=== PATIENT | female | born 1985 | race Caucasian/White ===

== ENCOUNTER 2021-12-11 22:21 | Inpatient (IN) | payer OTHER ==
[~2021-12-11] VITALS: Ht 167.6 cm; Wt 77.1 kg
[~2021-12-11 22:21] MED LIST: Bactrim Ds Tab1 EACH PO
[2021-12-11 23:39] LABS: BASOPHILS ABSOLUTE AUTO 0.03 K/mm3 (0.00-0.23); BASOPHILS PERCENT AUTO 1 % (0-2); EOSINOPHILS ABSOLUTE AUTO 0.36 K/mm3 (0.00-0.68); EOSINOPHILS PERCENT AUTO 6 % (0-6); Hematocrit 38.2 % (33.0-51.0); Hemoglobin 13.1 g/dL (11.5-16.0); IMMATURE GRAN PERCENT AUTO 0 % (0-1); LYMPHOCYTES PERCENT AUTO 40 % (21-46); MONOCYTES ABSOLUTE AUTO 0.45 K/mm3 (0.16-1.47); MONOCYTES PERCENT AUTO 8 % (4-13); Mean Corpuscular HGB 31.7 pg (26.0-34.0); Mean Corpuscular HGB Conc 34.3 g/dL (31.5-36.5); Mean Corpuscular Volume 93 fL (80-100); Mean Platelet Volume 9.3 fL (9.1-12.4); NEUTROPHILS ABSOLUTE AUTO 2.56 K/mm3 (1.96-9.15); NEUTROPHILS PERCENT AUTO 45 % (41-73); Platelet Count 259 K/mm3 (150-400); RDW Coefficient Variation 11.4 % (11.7-14.2); RDW Standard Deviation 38.5 fL (35.1-46.3); Red Blood Cell Count 4.13 M/mm3 (3.80-5.20)
[2021-12-11 23:49] LABS: Bun/Creatinine Ratio 20.4 (12.0-20.0); Calcium, Blood 9.2 mg/dL (8.5-10.1); Creatinine, Blood 0.69 mg/dL (0.40-1.00); Potassium, Blood 3.9 mmol/L (3.5-5.5)
[2021-12-12] MEDS ORDERED: NARCAN4 M1 (06:46)
[2021-12-12 08:36] LABS: Creatine Kinase MB 31.7 ng/mL (0.0-3.6)
[2021-12-12 08:39] LABS: Creatine Kinase MB Index 1.9 (0.0-4.0)
[2021-12-12 10:33] LABS: Base Excess Venous 5.7 mmol/L; Bicarbonate Venous 26.6 mmol/L (24.0-30.0); PCO2 Venous 65.6 mmHg (38-42); PO2 Venous 36.1 mmHg (38-42)
[2021-12-12 10:46] LABS: Source, Urine Clean Catch
[2021-12-12 11:22] LABS: Appearance, Urine Clear (Clear); Bilirubin, Urine Neg (Neg); Blood, Urine 1+ (Neg); Color, Urine Yellow (P-Yellow); Glucose Qualitative, Urine Neg (Neg); Ketones, Urine 3+ (Neg); Leukocyte Esterase, Urine 1+ (Neg); Nitrite, Urine Neg (Neg); Protein, Urine 1+ (Neg); Specific Gravity, Urine 1.025 (1.003-1.022); Urobilinogen, Urine NORM (Normal)
[2021-12-12 11:38] LABS: Bacteria Few /hpf; Red Blood Cells, Urine 0-2 /hpf (0-2); Squamous Epithelial Cells Few /hpf (Few)
[2021-12-12 11:39] LABS: Transitional Epithelial Cells Few /hpf (0-Rare)
[2021-12-12 11:56] LABS: Influenza A, PCR NEGATIVE (NEGATIVE); Influenza B, PCR NEGATIVE (NEGATIVE); Resp Syncytial Virus, PCR NEGATIVE (NEGATIVE); SARS-Cov-2 (COVID-19) PCR, MMC NEGATIVE (NEGATIVE)
[2021-12-12 12:26] LABS: U Amphetamine Screen DETECTED; U Barbituate Screen Not Detected; U Benzodiazapine Screen DETECTED; U Buprenorphine Screen Not Detected; U Cannabinoids Screen Not Detected; U Cocaine Screen Not Detected; U Methadone Screen Not Detected; U Methamphetamine Screen DETECTED; U Opiates Screen Not Detected; U Oxycodone Screen Not Detected; U Phencyclidine Screen Not Detected; U Propoxyphene Screen Not Detected
[2021-12-12 13:00] LABS: Base Excess Venous 3.7 mmol/L; Bicarbonate Venous 25.9 mmol/L (24.0-30.0); PCO2 Venous 55.8 mmHg (38-42); pH Blood Venous 7.33 (7.34-7.37)
--- NOTE | 2021-12-12 20:35 | NUR ---
1940: CALLED GERARD LOGAN FROM ED, REPORT RECEIVED. 2015: PT WAS TRANSFERRED TO ROOM 344 VIA RNEY. PT SLEEPING.REMAINED HER EYES CLOSED, RESPOND TO VERBAL STIMULI. REFUSE TO ANSWER QUESTIONS. UNABLE TO ASSESS HX. VSS. HR 48BPM. LR INFUSING AT 200MLS/HR. CALLED DR. NANCE FOR TELE AND FLUIDS NS AT 75MLS/HR FOR 1.5 LITER. PT REMAIN CALM IN ROOM, SLEEPING. NOTED SOME JERKING WHEN ATTEMPTING TO SPEAK OR MAKE CONVERSATION.NO SIGNS OF SI OR DISTRESS AT THIS TIME. PT WILL BE ON CAMERA FOR SAFETY AND OBSERVATION. NOTIFY CHARGE NURSE FANI OF SAFETY PRECAUTIONS.
--- NOTE | 2021-12-13 03:37 | NUR ---
SHIFT SUMMARY NO ACUTE CHANGES SINCE PT CAME IN. PT PRESENTS INTERMITTENT JERKING MOVEMENTS. PT RESPONDS TO PAINFULA AND VERBAL STIMULI BUT HAD BEEN SLEEPING T/O SHIFT. PT'S SISTER CALLED LAST NIGHT, MEI. I ASKED THE PT FOR VERBAL CONSENT IF I COULD RELEASE INFO TO HER, PT VERBALIZE "YES", SLIGHTLY OPENED HER EYES. PT'S STS STATES THAT JERKING MOVEMENTS IS CHRONIC AND BASELINE DUE TO [place]'S DISEASE. SHE ALSO STATES THAT THE PT HAS BEEN HOMELESS FOR ABOUT 6 YRS, ON/OFF WILL VISIT AND STAY WITH MEI IN [place]. IV FLUIDS INFUSING AT 75MLS/HR. BED ALARM ON AND BED IN LOW POSITION FOR SAFETY. NPO. VSS, HR BETWEEN 42-60'S. TELE IN PLACE:SINUS AGUILAR. ATTENDS IN PLACE. CALL LIGHT WITHIN REACH. WILL CONTINUE TO MONITOR AND WILL PROVIDE REPORT TO ONCOMING NURSE.
[2021-12-13 06:06] LABS: Albumin, Blood 3.1 g/dL (3.4-5.0); Albumin/Globulin Ratio 0.9 (0.8-1.8); Bilirubin, Total 0.7 mg/dL (0.1-1.0); Bun/Creatinine Ratio 26.4 (12.0-20.0); Calcium, Blood 8.3 mg/dL (8.5-10.1); Creatinine, Blood 0.53 mg/dL (0.40-1.00); Globulin, Blood 3.4 g/dL (2.2-4.0); Potassium, Blood 3.6 mmol/L (3.5-5.5); Total Protein, Blood 6.5 g/dL (6.4-8.2)
--- NOTE | 2021-12-13 18:05 | NUR ---
SHIFT SUMMARY: PT LETHARGIC AND WITHDRAEN AT THE BEGGINING OF THE SHIFT. PT ANSWERED TO YES OR NO QUESTIONS WITH MUBLING. PT INCONTIENT OF URINE AND WEARING ATTENDS. PT HAD NO COMPLAINTS OF PAIN. PT AT LUNCH TIME MORE AWAKE AND COMMUNICATING WITH YES OR NO QUESTIONS. PT ASSISTED WITH MEAL AT THE BEGINNING THEN PATIENT WAS ABLE TO FEED HERSELF. PT HAS INVLOUNTARY JERKING AND MOVEMENT, NEEDS ASSISTANCE WITH MEALS OR FINGER FOODS TO EAT. PT WAS ABLE TO AMBULATE TO THE RESTROOM TO URINATE, PT WAS A 1 PERSON ASSIST. PT IS ON KVO NS 75ML/HR. PT HAD NO COMPLAINTS OF PAIN, NO AGITATION THROUGHOUT SHIFT. DR. FRANKLIN CONTACTED SISTER TO CONFIRM HX OF [place] DISEASE. DR. FRANKLIN ORDERED CT SCAN. PT LYING IN BED WITH CALL LIGHT WITHIN REACH.
[2021-12-14 08:32] LABS: Hematocrit 36.8 % (33.0-51.0); Hemoglobin 12.8 g/dL (11.5-16.0); Mean Corpuscular HGB 31.8 pg (26.0-34.0); Mean Corpuscular HGB Conc 34.8 g/dL (31.5-36.5); Mean Corpuscular Volume 91 fL (80-100); Mean Platelet Volume 9.2 fL (9.1-12.4); Platelet Count 239 K/mm3 (150-400); RDW Coefficient Variation 11.6 % (11.7-14.2); RDW Standard Deviation 39.1 fL (35.1-46.3); Red Blood Cell Count 4.03 M/mm3 (3.80-5.20); White Blood Cell Count 5.01 K/mm3 (4.00-11.30)
[2021-12-14 08:52] LABS: Anion Gap 5 mmol/L (6-16); Blood Urea Nitrogen 11 mg/dL (8-24); Bun/Creatinine Ratio 18.7 (12.0-20.0); CO2, Blood 26 mmol/L (21-32); CPK Creatine Kinase 701 U/L (26-193); Calcium, Blood 8.1 mg/dL (8.5-10.1); Chloride, Blood 112 mmol/L (98-108); Creatinine, Blood 0.59 mg/dL (0.40-1.00); Glomerular Filtration Rate 121 (60-); Glucose, Blood 91 mg/dL (70-99); Phosphorus, Blood 2.1 mg/dL (2.5-4.9); Potassium, Blood 3.7 mmol/L (3.5-5.5); Sodium, Blood 143 mmol/L (136-145)
--- NOTE | 2021-12-14 16:58 | NUR ---
SHIFT SUMMARY PATIENT LETHARGIC AND WITHDRAWN AT BEGINNING OF SHIFT. ONLY ANSWERING TO YES OR NO QUESTIONS. WAKING BRIEFLY FOR MEALS AND TO GET UP TO USE THE RESTROOM. SBA TO RESTROOM TO MANAGE IV POLE. RECEIVING NS AT 75ML/HR. BECOMING MORE AWAKE LATER IN SHIFT WHEN FAMILY AT BEDSIDE. TELE MONITORING WITH UNSPECIFIC ARRHYTHMIA NOTED. WILL CONTINUE TO MONITOR.
--- NOTE | 2021-12-14 19:50 | NUR ---
PT DENIED ANY HEADACHE, CHEST PAIN, NAUSEA, SOB, OR NUMBNESS AND TINGLING. PT AMBULATORY TO [facility] WITH SBA. PT REPORTS ONLY COMPLAINT IS SHE IS "FEELING TIRED." IV INFUSING TO LEFT AC IV SITE WITHOUT COMPLICATIONS. TELE IN PLACE. PT BACK TO BED. BED ALARM ON FOR PT SAFETY. FLUIDS AT BEDSIDE. CALL LIGHT WITHIN REACH. NO REQUESTS AT THIS TIME.
--- NOTE | 2021-12-14 20:25 | NUR ---
I RECEIVED AN UPDATE FROM MONI, THAT [facility] STAFF CALLED THAT PT'S FRIEND, MEI HAD PASSED THE PATIENT AN ITEM, AND THEN PT REPORTED SHE NEEDED TO USE THE RESTROOM. I WENT INTO THE ROOM, AND PT WAS AMBULATORY TO [facility] WITH [employer]OT[employer] MACHINIST APPRENTICE'S PRESENT IN THE ROOM. I ASKED MEI, IF SHE HAD PASSED ANYTHING TO THE PT, AND SHE STATED "NO." I REPORTED THAT VISITING HOURS WERE OVER - MEI REPORTED SHE WAS PT'S RIDE FOR DISCHARGE, AND SHE "DIDN'T HAVE ANY GAS TO GET HOME." PT THEN STATED SHE "WANTS TO LEAVE." I ASKED PT TO SIT DOWN, AND THAT WE WOULD REMOVE IV, AND THAT I WOULD GET A AGAINST MEDICAL ADVICE FORM FOR HER TO SIGN. I CONTACTED DR. GERMAN AND RELAYED THE ABOVE SCENARIO TO HER. I ALSO SPOKE TO VENTURA TODD. I REPORTED TO DR. GERMAN THAT PT IS LUCID. DR. GERMAN REVIEWED PT'S CPK, AND REPORTED HER RENAL FUNCTION IS BETTER. I ALSO RELAYED TO DR. GERMAN, THAT PRIOR TO ADMIT PT WAS FOUND AT SE[facility] FEATHERS, AND REPORT WAS SHE HAD USED SOME FENTANYL, AND PT WAS ADMINISTERED NARCAN, AT WHICH TIME SHE BECAME SEVERELY AGITATED, AND PER DAY SHIFT REPORT - ER HAD TO SEDATE HER. PT PULLED HER OWN IV OUT, PER MONI MARYANN - SHE PLACED A DRESSING TO IV SITE WITH COBAN. PT SIGNED THE AMA FORM, AND AMBULATED OUT OF THE HOSPITAL WITH HER FRIEND, MEI, WHO APPARENTLY SHE LIVES WITH (PER REPORT FROM MEI.)
== END 2021-12-14 20:40 | disposition left against medical advice (07) | DRG 917 ==
LOC: ER 22:21 → ERHOLD 22:22 → MEDS 12-12 20:11
PROVIDERS: Emergency Medicine; Nurse Practitioner Acute Care; ADMIT Internal Medicine
DX: T40.411A Poisoning by fentanyl or fentanyl analogs, accidental (unintentional), initial encounter (principal); G92.8 Other toxic encephalopathy; J96.01 Acute respiratory failure with hypoxia; E87.2 Acidosis; G10 Huntington's disease; M62.82 Rhabdomyolysis; F15.10 Other stimulant abuse, uncomplicated; F13.10 Sedative, hypnotic or anxiolytic abuse, uncomplicated; R74.8 Abnormal levels of other serum enzymes; Z20.822 Contact with and (suspected) exposure to COVID-19; Z53.29 Procedure and treatment not carried out because of patient's decision for other reasons; I49.9 Cardiac arrhythmia, unspecified; F17.210 Nicotine dependence, cigarettes, uncomplicated; Z88.0 Allergy status to penicillin; Z78.1 Physical restraint status; Z91.040 Latex allergy status; Z79.899 Other long term (current) drug therapy
CPT/HCPCS: 0241U; 36415; 70450; 80048; 80053; 80069; 81001; 82550; 82553; 82803; 83735; 84550; 85025; 85027; 93005; 93010; 94762; 96361; 96372; 96374; 96375; 99285-25; G0378; J1200; J1630; J1650; J1790; J2060; J2310; J7030; J7120

== ENCOUNTER 2022-05-28 16:51 | Emergency (ER) | payer OTHER ==
[~2022-05-28] VITALS: Ht 170.2 cm; Wt 63.5 kg
[~2022-05-28 16:51] MED LIST changes: +NARCAN4 M1
[2022-05-28 17:33] LABS: BASOPHILS ABSOLUTE AUTO 0.01 K/mm3 (0.00-0.23); BASOPHILS PERCENT AUTO 0 % (0-2); EOSINOPHILS ABSOLUTE AUTO 0.34 K/mm3 (0.00-0.68); EOSINOPHILS PERCENT AUTO 6 % (0-6); Hematocrit 36.5 % (33.0-51.0); Hemoglobin 12.7 g/dL (11.5-16.0); IMMATURE GRAN ABSOLUTE AUTO 0.01 K/mm3 (0.00-0.10); IMMATURE GRAN PERCENT AUTO 0 % (0-1); LYMPHOCYTES ABSOLUTE AUTO 1.32 K/mm3 (0.84-5.20); LYMPHOCYTES PERCENT AUTO 25 % (21-46); MONOCYTES ABSOLUTE AUTO 0.32 K/mm3 (0.16-1.47); MONOCYTES PERCENT AUTO 6 % (4-13); Mean Corpuscular HGB 31.6 pg (26.0-34.0); Mean Corpuscular HGB Conc 34.8 g/dL (31.5-36.5); Mean Corpuscular Volume 91 fL (80-100); NEUTROPHILS ABSOLUTE AUTO 3.39 K/mm3 (1.96-9.15); NEUTROPHILS PERCENT AUTO 63 % (41-73); Platelet Count 210 K/mm3 (150-400); RDW Coefficient Variation 12.2 % (11.7-14.2); RDW Standard Deviation 40.5 fL (35.1-46.3); Red Blood Cell Count 4.02 M/mm3 (3.80-5.20); White Blood Cell Count 5.39 K/mm3 (4.00-11.30)
[2022-05-28 17:52] LABS: Albumin, Blood 3.6 g/dL (3.4-5.0); Albumin/Globulin Ratio 0.9 (0.8-1.8); Bilirubin, Total 0.2 mg/dL (0.1-1.0); Bun/Creatinine Ratio 28.4 (12.0-20.0); Calcium, Blood 9.1 mg/dL (8.5-10.1); Creatinine, Blood 0.6 mg/dL (0.40-1.00); Potassium, Blood 3.8 mmol/L (3.5-5.5); Total Protein, Blood 7.6 g/dL (6.4-8.2)
[2022-05-28 18:24] LABS: Source, Urine Clean Catch
[2022-05-28 18:48] LABS: Appearance, Urine Hazy (Clear); Bilirubin, Urine Neg (Neg); Blood, Urine 3+ (Neg); Color, Urine Yellow (P-Yellow); Glucose Qualitative, Urine Neg (Neg); Ketones, Urine Neg (Neg); Leukocyte Esterase, Urine 3+ (Neg); Nitrite, Urine Neg (Neg); Protein, Urine 1+ (Neg); Specific Gravity, Urine 1.025 (1.003-1.022); Urobilinogen, Urine NORM (Normal)
[2022-05-28 18:54] LABS: Hyaline Casts 0-2 /lpf (0-2); Mucus Light (0-Heavy); White Blood Cells, Urine 25-50 /hpf (0-5)
[2022-05-28 18:55] LABS: Bacteria Many /hpf; Squamous Epithelial Cells Mod /hpf (Few); Transitional Epithelial Cells Rare /hpf (0-Rare)
[2022-05-28] MEDS ORDERED: PRAHYD1AEA PR (19:32)
== END 2022-05-28 19:39 | disposition home or self-care (01) ==
LOC: ER 16:51
PROVIDERS: Physician Assistant
DX: K64.9 Unspecified hemorrhoids (principal); F17.200 Nicotine dependence, unspecified, uncomplicated
CPT/HCPCS: 36415; 80053; 81001; 81025; 85025

== ENCOUNTER 2023-01-21 01:54 | Emergency (ER) | payer SELFPAY ==
[~2023-01-21] VITALS: Ht 167.6 cm; Wt 61.2 kg
[~2023-01-21 01:54] MED LIST changes: +PRAHYD1AEA PR
[2023-01-21 02:27] LABS: BASOPHILS ABSOLUTE AUTO 0.05 K/mm3 (0.00-0.23); BASOPHILS PERCENT AUTO 0 % (0-2); EOSINOPHILS ABSOLUTE AUTO 0.61 K/mm3 (0.00-0.68); EOSINOPHILS PERCENT AUTO 5 % (0-6); Hematocrit 41.9 % (33.0-51.0); Hemoglobin 14.3 g/dL (11.5-16.0); IMMATURE GRAN ABSOLUTE AUTO 0.05 K/mm3 (0.00-0.10); IMMATURE GRAN PERCENT AUTO 0 % (0-1); LYMPHOCYTES ABSOLUTE AUTO 1.29 K/mm3 (0.84-5.20); LYMPHOCYTES PERCENT AUTO 10 % (21-46); MONOCYTES ABSOLUTE AUTO 0.57 K/mm3 (0.16-1.47); MONOCYTES PERCENT AUTO 4 % (4-13); Mean Corpuscular HGB 31.5 pg (26.0-34.0); Mean Corpuscular HGB Conc 34.1 g/dL (31.5-36.5); Mean Corpuscular Volume 92 fL (80-100); Mean Platelet Volume 8.8 fL (9.1-12.4); NEUTROPHILS ABSOLUTE AUTO 10.62 K/mm3 (1.96-9.15); NEUTROPHILS PERCENT AUTO 81 % (41-73); Platelet Count 351 K/mm3 (150-400); RDW Standard Deviation 41.2 fL (35.1-46.3); Red Blood Cell Count 4.54 M/mm3 (3.80-5.20); White Blood Cell Count 13.19 K/mm3 (4.00-11.30)
[2023-01-21 02:44] LABS: Alanine Aminotransfer (ALT/SGP 35 U/L (12-78); Albumin, Blood 4.1 g/dL (3.4-5.0); Albumin/Globulin Ratio 0.9 (0.8-1.8); Alk Phos 91 U/L (50-136); Anion Gap 4 mmol/L (6-16); Aspartate Aminotrans (AST/SGOT 27 U/L (12-37); Bilirubin, Total 0.2 mg/dL (0.1-1.0); Blood Urea Nitrogen 17 mg/dL (8-24); Bun/Creatinine Ratio 21.4 (12.0-20.0); CO2, Blood 30 mmol/L (21-32); Calcium, Blood 8.8 mg/dL (8.5-10.1); Chloride, Blood 106 mmol/L (98-108); Creatinine, Blood 0.79 mg/dL (0.40-1.00); Ethanol (Alcohol), Blood, Med <3 mg/dL; Globulin, Blood 4.4 g/dL (2.2-4.0); Glomerular Filtration Rate 100 (60-); Glucose, Blood 95 mg/dL (70-99); Magnesium, Blood 2.5 mg/dL (1.6-2.4); Phosphorus, Blood 5.1 mg/dL (2.5-4.9); Potassium, Blood 3.6 mmol/L (3.5-5.5); Sodium, Blood 140 mmol/L (136-145); Total Protein, Blood 8.5 g/dL (6.4-8.2)
[2023-01-21 03:15] VITALS: BP 137/80
[2023-01-21] MEDS ORDERED: NARCAN4 M1 (04:13)
== END 2023-01-21 04:20 | disposition home or self-care (01) ==
LOC: ER 01:54
PROVIDERS: Emergency Medicine
DX: T40.411A Poisoning by fentanyl or fentanyl analogs, accidental (unintentional), initial encounter (principal); F17.200 Nicotine dependence, unspecified, uncomplicated; Z88.0 Allergy status to penicillin; Z91.040 Latex allergy status
CPT/HCPCS: 80053; 83735; 84100; 84703; 85025; 93005; 93010; 99284-25

== ENCOUNTER 2023-09-01 08:06 | Emergency (ER) | payer OTHER ==
[~2023-09-01] VITALS: Ht 167.6 cm; Wt 54.4 kg
[2023-09-01 10:00] VITALS: BP 102/74
== END 2023-09-01 10:12 | disposition home or self-care (01) ==
LOC: ER 08:06
DX: T40.411A Poisoning by fentanyl or fentanyl analogs, accidental (unintentional), initial encounter (principal); F11.90 Opioid use, unspecified, uncomplicated; G10 Huntington's disease; F17.200 Nicotine dependence, unspecified, uncomplicated; Z88.0 Allergy status to penicillin; Z91.040 Latex allergy status; Z79.899 Other long term (current) drug therapy